=== PATIENT | female | born 1955 | race Two or more races ===

== ENCOUNTER 2024-03-31 10:00 | Inpatient (IN) | payer OTHER ==
[~2024-03-31] VITALS: Ht 149.9 cm; Wt 0.5 kg
[2024-03-31] MEDS ORDERED: METFORMIN HCL1000 M2 PO (12:45)
[2024-03-31] MEDS ORDERED: SYNTHROID125 MCG PO (12:45)
[2024-03-31] MEDS ORDERED: COZAAR100 MG PO (12:46)
[2024-03-31] MEDS ORDERED: WELLBUTRIN XL300 MG PO (12:46)
[2024-03-31] MEDS ORDERED: BUPROPION HCL75 MG (12:47)
[2024-03-31] MEDS ORDERED: DOXEPIN HCL3 MG PO (12:50)
[2024-03-31] MEDS ORDERED: PROTONIX40 MG PO (12:50)
[2024-03-31] MEDS ORDERED: ESTAZOLAM2 MG PO (12:51)
[2024-04-05] MEDS ORDERED: OxyCODONE HCL 5 MG TABLET (ROXICODONE) PO PRN (13:30)
[2024-04-05] MEDS ORDERED: 0.9 % SODIUM CHLORIDE 1,000 ML IV SCH (13:30)
[2024-04-05] MEDS ORDERED: ONDANSETRON HCL 2 MG/ML VIAL IV PRN (13:30)
[2024-04-05] MEDS ORDERED: DEXTROSE 50 % IN WATER 0.5 G/ML DISP.SYRIN IV PRN ×2 (13:30→18:00)
[2024-04-05] MEDS ORDERED: MORPHINE SULFATE 4 MG/ML CARTRIDGE IV PRN (13:30)
[2024-04-05] MEDS ORDERED: ACETAMINOPHEN 500 MG GEL..CAP PO SCH (14:00)
[2024-04-05] MEDS ORDERED: CEFTRIAXONE SODIUM 2,000 MG VIAL IV ONE (14:30)
[2024-04-05] MEDS ORDERED: METRONIDAZOLE/SODIUM CHLORIDE 500 MG/100 ML PIGGYBACK IV ONE ×2 (14:30)
[2024-04-05] MEDS ORDERED: BUPIVACAINE HCL 30 ML VIAL IJ ONE (14:30)
[2024-04-05] MEDS ORDERED: LIDOCAINE HCL 1%/EPINEPHRINE 20ML VIAL IJ ONE (14:30)
[2024-04-05] MEDS ORDERED: HYOSCYAMINE SULFATE 0.125 MG TAB.SUBL SL SCH (17:00)
[2024-04-05] MEDS ORDERED: POLYETHYLENE GLYCOL 3350 17 GM BLIST.PACK PO SCH (17:00)
[2024-04-05] MEDS ORDERED: GABAPENTIN 300 MG CAPSULE PO SCH (17:00)
[2024-04-05] MEDS ORDERED: MORPHINE SULFATE 4 MG/ML VIAL IV ONE ×2 (17:10→17:40)
[2024-04-05] MEDS ORDERED: SUGAMMADEX SODIUM 200 MG/2 ML VIAL IV ONE (17:15)
[2024-04-05] MEDS ORDERED: ENALAPRILAT DIHYDRATE 1.25 MG/ML VIAL IV PRN (18:00)
[2024-04-05] MEDS ORDERED: INSULIN LISPRO 1,000 UNIT/10 ML UNITS SUBCUTANEO PRN (18:00)
[2024-04-05 19:00] VITALS: BP 110/60; O2SAT 99
[2024-04-05 19:02] LABS: HEMATOCRIT 34.4 % (36.0-45.00); HEMOGLOBIN 11.9 g/dL (12.0-15.00); MEAN CELL VOLUME 86.5 fL (80.00-100.00); MEAN CORPUSCULAR HEMOGLOBIN 29.9 pg (27.00-32.0); MEAN CORPUSCULAR HGB CONC 34.6 g/dl (32.0-36.0); PLATELET COUNT 261 K/uL (150-450); RED BLOOD COUNT 3.98 M/uL (4.00-6.00); RED CELL DISTRIBUTION WIDTH 14.7 % (11.5-14.5)
[2024-04-05 19:28] LABS: ALBUMIN 3.4 gm/dL (3.4-5.0); CALCIUM 8.9 mg/dL (8.5-10.1); CREATININE SERUM 0.7 mg/dL (0.55-1.02); GFR 82.72; PHOSPHOROUS 3.1 mg/dL (2.5-4.9); POTASSIUM 3.51 mEq/L (3.5-5.1)
[2024-04-05] MEDS ORDERED: DOXAZOSIN MESYLATE 2 MG TABLET PO SCH (21:00)
[2024-04-05] MEDS ORDERED: FAMOTIDINE/PF 20 MG/2 ML VIAL IV PUSH SCH (21:00)
[2024-04-05] MEDS ORDERED: CELECOXIB 200 MG CAPSULE PO SCH (21:00)
[2024-04-05 21:26] LABS: MAGNESIUM 1.3 mg/dL (1.8-2.4)
[2024-04-05] MEDS ORDERED: MAGNESIUM SULFATE IN WATER 2 GM/50 ML PIGGYBAG IV ONE (21:30)
[2024-04-06 00:49] VITALS: BP 169/80; O2SAT 95
[2024-04-06 04:10] VITALS: BP 134/66
[2024-04-06] MEDS ORDERED: PATIENTS OWN MEDICATION (MEDICAMENTO EN PISO) PO SCH (06:00)
[2024-04-06 08:05] LABS: HEMATOCRIT 31.9 % (36.0-45.00); HEMOGLOBIN 11.1 g/dL (12.0-15.00); MEAN CELL VOLUME 84.8 fL (80.00-100.00); MEAN CORPUSCULAR HEMOGLOBIN 29.6 pg (27.00-32.0); MEAN CORPUSCULAR HGB CONC 34.8 g/dl (32.0-36.0); PLATELET COUNT 278 K/uL (150-450); RED BLOOD COUNT 3.76 M/uL (4.00-6.00); RED CELL DISTRIBUTION WIDTH 14.8 % (11.5-14.5)
[2024-04-06 08:26] LABS: ALBUMIN 2.8 gm/dL (3.4-5.0); CALCIUM 8.2 mg/dL (8.5-10.1); CREATININE SERUM 0.64 mg/dL (0.55-1.02); GFR 91.74; MAGNESIUM 1.8 mg/dL (1.8-2.4); PHOSPHOROUS 3.7 mg/dL (2.5-4.9); POTASSIUM 3.75 mEq/L (3.5-5.1)
[2024-04-06 08:43] VITALS: BP 108/55; O2SAT 100
[2024-04-06] MEDS ORDERED: BUSPIRONE HCL 5 MG TABLET PO SCH (09:00)
[2024-04-06] MEDS ORDERED: INDAPAMIDE 1.25 MG TABLET PO SCH (09:00)
[2024-04-06] MEDS ORDERED: BUPROPION HCL 150 MG TABLET.SA PO SCH (09:00)
[2024-04-06] MEDS ORDERED: LOSARTAN POTASSIUM 100 MG TABLET PO SCH (09:00)
[2024-04-06] MEDS ORDERED: ENOXAPARIN SODIUM 40 MG/0.4 ML SYRINGE SUBCUTANEO SCH (17:00)
[2024-04-06 19:30] VITALS: BP 121/72; O2SAT 97
[2024-04-07 00:11] VITALS: BP 98/62; O2SAT 94
[2024-04-07 07:21] LABS: HEMATOCRIT 28.3 % (36.0-45.00); HEMOGLOBIN 9.8 g/dL (12.0-15.00); MEAN CELL VOLUME 86.5 fL (80.00-100.00); MEAN CORPUSCULAR HEMOGLOBIN 29.8 pg (27.00-32.0); MEAN CORPUSCULAR HGB CONC 34.5 g/dl (32.0-36.0); PLATELET COUNT 231 K/uL (150-450); RED BLOOD COUNT 3.28 M/uL (4.00-6.00)
[2024-04-07 08:00] VITALS: BP 128/64; O2SAT 100
[2024-04-07 08:07] LABS: CALCIUM 8.3 mg/dL (8.5-10.1); CREATININE SERUM 0.64 mg/dL (0.55-1.02); GFR 91.74; MAGNESIUM 1.6 mg/dL (1.8-2.4); PHOSPHOROUS 2.5 mg/dL (2.5-4.9); POTASSIUM 3.57 mEq/L (3.5-5.1)
[2024-04-07] MEDS ORDERED: HYOSCYAMINE0.125 M1 SL (08:08)
[2024-04-07] MEDS ORDERED: PEPCID AC20 MG PO (08:08)
[2024-04-07] MEDS ORDERED: INTEGRA F CAPS1 EACH PO (08:08)
[2024-04-07] MEDS ORDERED: TRAM1TAB98 PO (08:08)
[2024-04-07] MEDS ORDERED: ENOXAPARIN SODIUM 40 MG/0.4 ML SYRINGE SUBCUTANEO SCH (09:00)
[2024-04-07] MEDS ORDERED: MAGNESIUM SULFATE IN WATER 50 ML IV NR (10:30)
== END 2024-04-07 16:32 | disposition home or self-care (01) | DRG 330 ==
LOC: O/R 04-05 06:34 → SURG 04-05 06:34 → SURH 04-05 10:00 → SURG 04-05 17:09
PROVIDERS: Internal Medicine Geriatric Medicine; ADMIT Surgery; ATTEND Surgery
PROC: 0DBP4ZZ Excision of Rectum, Percutaneous Endoscopic Approach (ICD-10-PCS; 2024-04-05)
PROC: 0DJD8ZZ Inspection of Lower Intestinal Tract, Via Natural or Artificial Opening Endoscopic (ICD-10-PCS; 2024-04-05)
PROC: 0DTN4ZZ Resection of Sigmoid Colon, Percutaneous Endoscopic Approach (ICD-10-PCS; principal; 2024-04-05 12:30)
DX: K57.20 Diverticulitis of large intestine with perforation and abscess without bleeding (principal); K56.51 Intestinal adhesions [bands], with partial obstruction; E11.9 Type 2 diabetes mellitus without complications; E03.9 Hypothyroidism, unspecified; Z79.84 Long term (current) use of oral hypoglycemic drugs; E83.42 Hypomagnesemia